=== PATIENT | male | born 1950 | race Caucasian/White ===

== ENCOUNTER 2016-02-17 18:25 | Inpatient (IN) | payer OTHER, MEDICARE ==
[~2016-02-17] VITALS: Ht 182.9 cm; Wt 105.6 kg
[~2016-02-17 18:25] MED LIST: ASPI81 CHEW; ATOR20TA42 PO; CARV12.5 PO; FURO1TAB93 PO; NORC7.5T PO; PERI8.6T PO; RIVA20 PO; SACU1TAB PO; SLOWTAB PO
[2016-02-17 18:27] VITALS: BP 112/72; PULSE 73; RESP 16; TEMP 98.1; O2SAT 99
[2016-02-17 19:52] LABS: AUTOMATED NEUTROPHIL # 4.9 TH/MM3 (1.8-7.7); BASOPHIL % 0.6 % (0.0-2.0); EOSINOPHIL # 0.1 TH/MM3 (0-0.4); HEMATOCRIT 45.1 % (39.0-51.0); HEMO FLAGS DIFF FINAL; LYMPH % 15.6 % (9.0-44.0); LYMPHOCYTE # 1.1 TH/MM3 (1.0-4.8); MEAN CELL VOLUME 96.8 FL (80.0-100.0); MEAN CORPUSCULAR HEMOGLOBIN 32.9 PG (27.0-34.0); MONO % 9.6 % (0.0-8.0); NEUT % 72.2 % (16.0-70.0); PLATELET COUNT 153 TH/MM3 (150-450); RED BLOOD COUNT 4.66 MIL/MM3 (4.50-5.90); RED CELL DISTRIBUTION WIDTH 14.8 % (11.6-17.2); WHITE BLOOD COUNT 6.9 TH/MM3 (4.0-11.0)
[2016-02-17 20:16] LABS: ANION GAP 10 MEQ/L (5-15); BICARBONATE 26.2 MEQ/L (21.0-32.0); BLOOD UREA NITROGEN 35 MG/DL (7-18); CHLORIDE 106 MEQ/L (98-107); GLOMERULAR FILTRATION RATE 32 ML/MIN (>89); POTASSIUM 4.5 MEQ/L (3.5-5.1); SODIUM (NA) 142 MEQ/L (136-145)
[2016-02-17 20:21] LABS: CREATINE KINASE 279 U/L (39-308)
[2016-02-17 20:33] LABS: CKMB 9.8 NG/ML (0.5-3.6)
[2016-02-17 20:50] VITALS: BP 118/81; PULSE 78; RESP 18; O2SAT 100
[2016-02-17] MEDS ORDERED: FUROSEMIDE 40 MG/4 ML VIAL IV PUSH ONE (21:30)
[2016-02-17] MEDS ORDERED: NITROGLYCERIN 2% OINT 1 GM PACKET TOP ONE (21:30)
[2016-02-17] MEDS ORDERED: ASPIRIN 81 MG CHEW TAB PO ONE (21:30)
--- NOTE | 2016-02-17 21:34 | PD ---
HPI Chief Complaint: Cardiac Complaint Time Seen by Provider: 21:27 Travel History International Travel<30 days: No Contact w/Intl Traveler<30days: No Traveled to known affect area: No History of Present Illness HPI Patient is a 65-year-old male with a history of CHF with EF 40-45%, CAD with AICD, atrial fibrillation on Xarelto sent by his hospice consultant Dr. Montes De Oca for CHF exacerbation. Patient states since gi he has gained 20 pounds and feels it is all fluid. He is increasingly dyspneic and reports TRUJILLO, orthopnea and worsening pedal edema. He states that even over the last several weeks he gets tired more easily with the same amount of activity then weeks prior. He denies any chest pain during this time or currently. He is not currently on aspirin. He is taking Lasix 40 mg twice a day and has copious urine output. He states with position changes he gets lightheaded for a few seconds but denies syncope. He denies cough or fever. Denies pain in his lower extremities. PFSH Past Medical History Hx Anticoagulant Therapy: Yes (XARELTO) Atrial Fibrillation: Yes Heart Rhythm Problems: Yes (AICD placed in ut 2009) Cancer: No Cardiac Catheterization: Yes Cardiovascular Problems: Yes (DEFIBRILATOR, STENTS, CHF, A-FIB) High Cholesterol: Yes Congestive Heart Failure: Yes Diabetes: Yes Patient Takes Glucophage: No Diminished Hearing: Yes (BOO HEARING AIDS) Endocrine: No Gastrointestinal Disorders: Yes Genitourinary: No Hypertension: Yes Musculoskeletal: No Neurologic: No Psychiatric: No Respiratory: No Tetanus Vaccination: > 5 Years ?: Not Past Surgical History Cardiac Surgery: Yes (AICD PLACEMENT,STENT PLACEMENT) Cholecystectomy: Yes Coronary Stent: Yes (X 1) Other Surgery: Yes (GALLBLADDER REMOVAL, RETINA REPAIR) Social History Alcohol Use: No (PT DENIES) Tobacco Use: No Substance Use: No Allergies-Medications (Allergen,Severity, Reaction): Coded Allergies: No Known Allergies (Unverified , 08/14/15) Reported Meds & Prescriptions Reported Meds & Active Scripts Active Trinh-Colace 8.6-50 mg (Sennosides-Docusate Sodium) 1 Tab Tab 86 Mg PO BID 10 Days [place] 7.5-325 mg (Hydrocodone-Acetaminophen 7.5-325 mg) 1 Tab 1 Tab PO Q6H PRN Entresto 24-26 mg (Sacubitril-Valsartan) 1 Tab Tab 1 Tab PO BID 30 Days Furosemide 40 Mg Tab 40 Mg PO BIDDIURETIC 30 Days Coreg 12.5 mg (Carvedilol) 12.5 Mg Tab 12.5 Mg PO Q12 30 Days Lipitor (Atorvastatin Calcium) 20 Mg Tab 20 Mg PO HS 30 Days Reported Xarelto 20 Mg Tab (Rivaroxaban) 20 Mg Tab 20 Mg PO HS Slow-Mag (Magnesium Chloride) 64 Mg Tab 64 Mg PO BID Aspirin 81 Mg Tab 162 Mg CHEW DAILY Review of Systems Except as stated in HPI: all other systems reviewed are Neg Physical Exam Narrative GENERAL: Well-developed and well-nourished adult male in no acute distress. SKIN: Warm and dry. Good turgor without tenting. HEAD: Normocephalic and atraumatic. EYES: PERRL bilaterally, 5mm. EOMI bilaterally. No injection or icterus present. No proptosis. Lids without edema or erythema. ENT: Buccal mucosa pink and moist. Oropharynx free of erythema, tonsillar hypertrophy, masses, swelling, asymmetry and exudates. Uvula midline and airway patent. NECK: JVD to the level of the tragus. Supple, no midline tenderness, crepitus or step-offs. Trachea midline. No cervical or facial lymphadenopathy. CARDIOVASCULAR: Regular rate with irregularly irregular rhythm without murmurs, rubs, clicks or gallops. Radial and dorsalis pedis pulses 2+ bilaterally. Bilateral 2+ pitting edema, negative bilateral Homans sign. RESPIRATORY: Faint crackles at the bilateral bases, otherwise clear to auscultation bilaterally with symmetrical rise and fall, no distress or use of accessory muscles. Patient speaks in full sentences and does not appear visibly dyspneic. GASTROINTESTINAL: Non-tender, non-distended. Normal bowel sounds all 4 quadrants. No masses or organomegaly present. MUSCULOSKELETAL: Patient freely moving all four extremities spontaneously. Extremities without clubbing, cyanosis, or edema. No obvious deformities. NEUROLOGIC: CN II-XII grossly intact. Awake and alert. Motor grossly within normal limits. Normal speech. PSYCHIATRIC: Appropriate mood and affect; insight and judgment normal. Data Data Last Documented VS Vital Signs Date Time Temp Pulse Resp B/P Pulse Ox O2 Delivery O2 Flow Rate FiO2 02/17/16 22:10 50 26 109/67 96 Room Air 02/17/16 18:27 98.1 Orders Electrocardiogram (02/17/16 18:39) Complete Blood Count With Diff (02/17/16 18:39) Basic Metabolic Panel (Bmp) (02/17/16 18:39) Ckmb (Isoenzyme) Profile (02/17/16 18:39) Troponin I (02/17/16 18:39) Chest, Single Ap (02/17/16 18:39) CKMB (02/17/16 19:10) CKMB% (02/17/16 19:10) B-Type Natriuretic Peptide (02/17/16 21:24) Aspirin Chew (Aspirin Chew) (02/17/16 21:30) Nitroglycerin 2% Oint (Nitroglycerin 2% (02/17/16 21:30) Furosemide Inj (Lasix Inj) (02/17/16 21:30) Admit Order (Ed Use Only) (02/17/16 22:34) Admit To Inpatient (02/17/16 ) Vital Signs (Adult) Q4H (02/17/16 22:33) Activity Oob With Assistance (02/17/16 22:33) ^ Heel Seat Filler / Telemetry .CONTINUOUS (02/17/16 22:33) Intake + Output DENA.QSHIFT (02/17/16 22:33) Diet Heart Healthy (02/18/16 Breakfast) Sodium Chloride 0.9% Flush (Ns Flush) (02/17/16 22:45) Sodium Chloride 0.9% Flush (Ns Flush) (02/18/16 09:00) Basic Metabolic Panel (Bmp) (02/18/16 06:00) Complete Blood Count With Diff (02/18/16 06:00) Creatine Kinase (Cpk) (02/18/16 01:00) Creatine Kinase (Cpk) (02/18/16 07:00) Troponin I (02/18/16 01:00) Troponin I (02/18/16 07:00) Electrocardiogram (02/18/16 01:00) Electrocardiogram (02/18/16 07:00) Pt Request For Service (02/17/16 22:33) Naloxone Inj (Narcan Inj) (02/17/16 22:45) Inpatient Certification (02/17/16 ) Consult Cardiology (02/17/16 ) Labs Laboratory Tests Test 02/17/16 19:10 White Blood Count 6.9 TH/MM3 Red Blood Count 4.66 MIL/MM3 Hemoglobin 15.3 GM/DL Hematocrit 45.1 % Mean Corpuscular Volume 96.8 FL Mean Corpuscular Hemoglobin 32.9 PG Mean Corpuscular Hemoglobin 34.0 % Concent Red Cell Distribution Width 14.8 % Platelet Count 153 TH/MM3 Mean Platelet Volume 9.9 FL Neutrophils (%) (Auto) 72.2 % Lymphocytes (%) (Auto) 15.6 % Monocytes (%) (Auto) 9.6 % Eosinophils (%) (Auto) 2.0 % Basophils (%) (Auto) 0.6 % Neutrophils # (Auto) 4.9 TH/MM3 Lymphocytes # (Auto) 1.1 TH/MM3 Monocytes # (Auto) 0.7 TH/MM3 Eosinophils # (Auto) 0.1 TH/MM3 Basophils # (Auto) 0.0 TH/MM3 CBC Comment DIFF FINAL Differential Comment Sodium Level 142 MEQ/L Potassium Level 4.5 MEQ/L Chloride Level 106 MEQ/L Carbon Dioxide Level 26.2 MEQ/L Anion Gap 10 MEQ/L Blood Urea Nitrogen 35 MG/DL Creatinine 2.10 MG/DL Estimat Glomerular Filtration 32 ML/MIN Rate Random Glucose 106 MG/DL Calcium Level 8.1 MG/DL Total Creatine Kinase 279 U/L Creatine Kinase MB 9.8 NG/ML Troponin I 0.06 NG/ML MDM Medical Decision Making Medical Screen Exam Complete: Yes Emergency Medical Condition: Yes Interpretation(s) Last 24 hours Impressions Chest X-Ray 02/17/16 7809 Signed Impressions: Service Date/Time: Wednesday, February 17, 2016 22:04 - CONCLUSION: No acute disease. Corky Dale MD Laboratory Tests Test 02/17/16 19:10 White Blood Count 6.9 TH/MM3 (4.0-11.0) Red Blood Count 4.66 MIL/MM3 (4.50-5.90) Hemoglobin 15.3 GM/DL (13.0-17.0) Hematocrit 45.1 % (39.0-51.0) Mean Corpuscular Volume 96.8 FL (80.0-100.0) Mean Corpuscular Hemoglobin 32.9 PG (27.0-34.0) Mean Corpuscular Hemoglobin 34.0 % Concent (32.0-36.0) Red Cell Distribution Width 14.8 % (11.6-17.2) Platelet Count 153 TH/MM3 (150-450) Mean Platelet Volume 9.9 FL (7.0-11.0) Neutrophils (%) (Auto) 72.2 % (16.0-70.0) Lymphocytes (%) (Auto) 15.6 % (9.0-44.0) Monocytes (%) (Auto) 9.6 % (0.0-8.0) Eosinophils (%) (Auto) 2.0 % (0.0-4.0) Basophils (%) (Auto) 0.6 % (0.0-2.0) Neutrophils # (Auto) 4.9 TH/MM3 (1.8-7.7) Lymphocytes # (Auto) 1.1 TH/MM3 (1.0-4.8) Monocytes # (Auto) 0.7 TH/MM3 (0-0.9) Eosinophils # (Auto) 0.1 TH/MM3 (0-0.4) Basophils # (Auto) 0.0 TH/MM3 (0-0.2) CBC Comment DIFF FINAL Differential Comment Sodium Level 142 MEQ/L (136-145) Potassium Level 4.5 MEQ/L (3.5-5.1) Chloride Level 106 MEQ/L (98-107) Carbon Dioxide Level 26.2 MEQ/L (21.0-32.0) Anion Gap 10 MEQ/L (5-15) Blood Urea Nitrogen 35 MG/DL (7-18) Creatinine 2.10 MG/DL (0.60-1.30) Estimat Glomerular Filtration 32 ML/MIN (>89) Rate Random Glucose 106 MG/DL (74-106) Calcium Level 8.1 MG/DL (8.5-10.1) Total Creatine Kinase 279 U/L (39-308) Creatine Kinase MB 9.8 NG/ML (0.5-3.6) Troponin I 0.06 NG/ML (0.02-0.05) Differential Diagnosis CHF exacerbation versus ACS versus pneumonia versus arrhythmia versus hypoglycemia Narrative Course Patient is a 65-year-old male with a history of CAD and CHF presenting with history and physical strong suggestive of acute CHF exacerbation. Further he saw his hospice consultant Dr. Montes De Oca today who sent him here. EKG shows atrophy relation with marked left axis deviation and left bundle branch block which is not new. No ST-T changes when compared to previous EKG. CBC unremarkable. Metabolic panel shows creatinine 2.10 which is elevated from 1.4. BUN 35, troponin 0.06. This does appear to be chronically elevated from 0.05-0.07 and likely is secondary to his chronic kidney disease. BNP was ordered in triage this was added. Chest x-ray pending. Given that the patient has elevated troponin and signs of CHF was given Lasix 40 mg IV, half inch of Nitropaste and aspirin 162 mg. AP chest x-ray read as normal however myself and Dr. Guevara again and it does appear to be some costophrenic blunting bilaterally. Lateral was not ordered as this was from triage. Patient was admitted to Dr. Lui for CHF exacerbation and RENATO. Diagnosis Primary Impression: Acute on chronic heart failure Qualified Code: I50.9 - Acute on chronic heart failure, unspecified heart failure type Additional Impression: Renal failure (ARF), acute on chronic Admitting Information Admitting Physician Requests: Admit Condition: Stable Leon Martinez III Feb 17, 2016 21:34
[2016-02-17 22:10] VITALS: BP 109/67; PULSE 50; RESP 26; O2SAT 96
--- NOTE | 2016-02-17 22:21 | RADRPT ---
EXAM DATE/TIME: 02/17/2016 22:04 [facility] COMPARISON: CHEST SINGLE AP, August 14, 2015, 22:21. INDICATIONS : Chest pain. MEDICAL HISTORY : Hypertension. CHF. Afib. SURGICAL HISTORY : Cardiac catheterization. Coronary stent. AICD. ENCOUNTER: Initial ACUITY: 1 day PAIN SCORE: 7/10 LOCATION: Bilateral chest FINDINGS: A single view of the chest demonstrates the lungs to be symmetrically aerated without evidence of mas s, infiltrate or effusion. The heart size is mildly enlarged. There is no perihilar edema. The left subclavian transvenous pacer remains in place. Osseous structures are intact. CONCLUSION: No acute disease. Corky Dale MD on February 17, 2016 at 22:18 Board Certified Radiologist. This report was verified electronically.
[2016-02-17] MEDS ORDERED: SODIUM CHLORIDE 0.9% FLUSH 5 ML FLUSH FLUSH PRN (22:45)
[2016-02-17] MEDS ORDERED: NALOXONE HCL 0.4 MG/ML AMP IV PRN (22:45)
[2016-02-18] VITALS (9 sets, daily range): BP systolic 108–130; BP diastolic 62–77; PULSE 57–84; RESP 16–28; TEMP 97.5–97.7; O2SAT 94–100
[2016-02-18] MEDS ORDERED: MAGN64 PO (03:10)
[2016-02-18] MEDS ORDERED: XARE20TA PO (03:10)
[2016-02-18] MEDS ORDERED: CARV12.52 PO (03:10)
[2016-02-18] MEDS ORDERED: FURO40TA PO (03:10)
[2016-02-18] MEDS ORDERED: LISI-519 PO (03:10)
[2016-02-18] MEDS ORDERED: ATOR20TA15 PO (03:10)
[2016-02-18 08:02] LABS: AUTOMATED NEUTROPHIL # 4.6 TH/MM3 (1.8-7.7); BASOPHIL % 0.6 % (0.0-2.0); EOSINOPHIL # 0.2 TH/MM3 (0-0.4); EOSINOPHIL % 2.6 % (0.0-4.0); HEMATOCRIT 45.3 % (39.0-51.0); HEMO FLAGS DIFF FINAL; LYMPH % 17.5 % (9.0-44.0); LYMPHOCYTE # 1.2 TH/MM3 (1.0-4.8); MEAN CELL VOLUME 96.4 FL (80.0-100.0); MEAN CORPUSCULAR HEMOGLOBIN 32.1 PG (27.0-34.0); MEAN CORPUSCULAR HGB CONC 33.3 % (32.0-36.0); MONO % 13.1 % (0.0-8.0); NEUT % 66.2 % (16.0-70.0); PLATELET COUNT 162 TH/MM3 (150-450); RED CELL DISTRIBUTION WIDTH 14.9 % (11.6-17.2); WHITE BLOOD COUNT 6.9 TH/MM3 (4.0-11.0)
[2016-02-18 08:24] LABS: BICARBONATE 26.1 MEQ/L (21.0-32.0); POTASSIUM 4.2 MEQ/L (3.5-5.1)
--- NOTE | 2016-02-18 08:33 | HHI.HP ---
[facility] Service [facility] Primary Care Physician Kike Giordano Do, MD Admission Diagnosis CHF exacerbation, RENATO Diagnoses: (1) CHF exacerbation Diagnosis: Principal (2) Ischemic cardiomyopathy (3) CAD (coronary artery disease) (4) Atrial fibrillation (5) Hyperlipidemia (6) Hypertension (7) Renal failure (ARF), acute on chronic (8) Chronic anticoagulation (9) Diabetes mellitus (10) Chronic systolic CHF (congestive heart failure) Chief Complaint: Swelling, CHF Travel History International Travel<30 Days: No Contact w/Intl Traveler <30 Da: No Traveled to Known Affected Are: No History of Present Illness The patient is a 65-year-old male with known history of congestive heart failure who presented to the emergency department at the recommendation of his market research intern yesterday. He states that he has had a 10+ pound weight gain in the past month. He states that he has had increasing shortness of breath and lower extremity swelling. Denies chest pain. Symptoms started following Thanksgiving. He states that he had a lot of family over, but they did not eat all of the food. He states that he finished off all the leftovers despite knowing that he was not following his recommended diet. He saw his market research intern yesterday and was advised to come to the ER. He states that he feels a little better today. Feels that the swelling in his legs has improved somewhat. She reports significant fatigue over the past few weeks as well. Review of Systems Constitutional: COMPLAINS OF: Fatigue, DENIES: Fever, Chills, Night Sweats Eyes: DENIES: Blurred vision, Vision loss Ears, nose, mouth, throat: DENIES: Hearing loss Respiratory: DENIES: Cough, Wheezing, Sputum production, Shortness of breath Cardiovascular: COMPLAINS OF: Lower Extremity Edema, DENIES: Chest pain, Palpitations, Dyspnea on Exertion Gastrointestinal: DENIES: Abdominal pain, Constipation, Diarrhea, Nausea, Vomiting Genitourinary: DENIES: Urinary frequency, Urinary incontinence, Urgency, Hematuria, Dysuria, Nocturia Musculoskeletal: DENIES: Joint pain, Muscle aches Integumentary: DENIES: Pruritus, Rash Hematologic/lymphatic: DENIES: Bruising Neurologic: DENIES: Headache Past Family Social History Past Medical History Chronic systolic congestive heart failure History of ischemic cardiomyopathy CAD Hypertension Hyperlipidemia History of retinal detachment Past Surgical History AICD placement Cardiac catheterization with coronary artery placement Cataract surgery Retinal detachment surgery Bilateral lower extremity vein stripping Reported Medications Trinh-Colace 8.6-50 mg (Sennosides-Docusate Sodium) 1 Tab Tab 86 Mg PO BID 10 Days [place] 7.5-325 mg (Hydrocodone-Acetaminophen 7.5-325 mg) 1 Tab 1 Tab PO Q6H PRN Furosemide 40 Mg Tab 40 Mg PO BIDDIURETIC 30 Days Coreg 12.5 mg (Carvedilol) 12.5 Mg Tab 12.5 Mg PO Q12 30 Days Lipitor (Atorvastatin Calcium) 20 Mg Tab 20 Mg PO HS 30 Days Xarelto 20 Mg Tab (Rivaroxaban) 20 Mg Tab 20 Mg PO HS Slow-Mag (Magnesium Chloride) 64 Mg Tab 64 Mg PO BID Aspirin 81 Mg Tab 162 Mg CHEW DAILY Lisinopril 5 mg daily Allergies: Coded Allergies: No Known Allergies (Unverified , 08/14/15) Family History Stroke, heart disease Social History Denies tobacco use, illicit drug use. Quit drinking alcohol 5 years ago. Physical Exam Vital Signs Vital Signs Date Time Temp Pulse Resp B/P Pulse Ox O2 Delivery O2 Flow Rate FiO2 02/18/16 05:35 59 16 108/72 96 Room Air 02/18/16 01:00 58 28 111/69 Room Air 02/17/16 22:10 50 26 109/67 96 Room Air 02/17/16 20:50 78 18 118/81 100 Room Air 02/17/16 20:48 68 18 100 Room Air 02/17/16 18:27 98.1 73 16 112/72 99 Room Air Physical Exam GENERAL: Well-nourished, well-developed male in no acute distress. HEENT: Normocephalic, atraumatic. Pupils equal, round and reactive. Extraocular movements intact. No scleral icterus. No injection or drainage. Oropharynx is clear. Mucous membranes are moist. CARDIOVASCULAR: Regular rate and rhythm without murmurs, gallops, or rubs. RESPIRATORY: Bibasilar crackles. Breathing is non-labored. GASTROINTESTINAL: Abdomen soft, non-tender, nondistended. EXTREMITIES: 2+ bilateral extremity edema to the knees. No calf tenderness. PSYCH: Alert and oriented x 3. Laboratory Laboratory Tests Test 02/17/16 02/18/16 02/18/16 19:10 02:37 07:17 White Blood Count 6.9 6.9 Red Blood Count 4.66 4.70 Hemoglobin 15.3 15.1 Hematocrit 45.1 45.3 Mean Corpuscular Volume 96.8 96.4 Mean Corpuscular Hemoglobin 32.9 32.1 Mean Corpuscular Hemoglobin 34.0 33.3 Concent Red Cell Distribution Width 14.8 14.9 Platelet Count 153 162 Mean Platelet Volume 9.9 9.8 Neutrophils (%) (Auto) 72.2 66.2 Lymphocytes (%) (Auto) 15.6 17.5 Monocytes (%) (Auto) 9.6 13.1 Eosinophils (%) (Auto) 2.0 2.6 Basophils (%) (Auto) 0.6 0.6 Neutrophils # (Auto) 4.9 4.6 Lymphocytes # (Auto) 1.1 1.2 Monocytes # (Auto) 0.7 0.9 Eosinophils # (Auto) 0.1 0.2 Basophils # (Auto) 0.0 0.0 CBC Comment DIFF FINAL DIFF FINAL Differential Comment Sodium Level 142 Potassium Level 4.5 Chloride Level 106 Carbon Dioxide Level 26.2 Anion Gap 10 Blood Urea Nitrogen 35 Creatinine 2.10 Estimat Glomerular Filtration 32 Rate Random Glucose 106 Calcium Level 8.1 Total Creatine Kinase 279 245 Creatine Kinase MB 9.8 Troponin I 0.06 0.06 B-Type Natriuretic Peptide 660 Result Diagram: 02/18/16 0717 02/17/16 191 Imaging Last Impressions Chest X-Ray 02/17/16 1839 Signed Impressions: Service Date/Time: Wednesday, February 17, 2016 22:04 - CONCLUSION: No acute disease. Corky Dale MD Assessment and Plan Assessment and Plan 1. Acute exacerbation of chronic systolic congestive heart failure: Patient has had weight gain of 10+ pounds in the past few weeks. Feels that he has improved overnight with diuresis. Discussed with cardiology, Dr. Montes De Oca. Continue diuresis, using caution secondary to renal failure. 2 g sodium heart healthy diet. 2. Acute on chronic renal failure: Monitor BUN and creatinine. Consider nephrology consult. 3. Hyperlipidemia: Continue statin. 4. Hypertension: Blood pressure is currently well controlled. 5. Diabetes mellitus: Monitor Accu-Cheks and cover with sliding scale insulin. 6. Mildly elevated troponin: Likely secondary to renal failure, CHF. 7. DVT prophylaxis: ASHLEIGH Lee. Will adjust dose of Xarelto secondary to renal function. Problem Qualifiers (1) CHF exacerbation: Qualified Code: I50.23 - Acute on chronic systolic congestive heart failure Travis Quinonez MD Feb 18, 2016 08:33
--- NOTE | 2016-02-18 08:55 | MB ---
cc: GEORGIE SHAVER MD DATE OF CONSULTATION: 02/18/2016 REASON FOR CONSULTATION CHF. HISTORY OF PRESENT ILLNESS Mr. Mirza is a 65-year-old man who does have a history of an ischemic cardiomyopathy with a most recent EF of 40-45% by echo in July 2015. The patient presented to the office yesterday with complaints of progressive dyspnea and thigh edema over the last month or so. The patient reports that he had been drinking a little extra water. He is now having dyspnea with brisk walking and subsequently presented to the emergency room. PAST MEDICAL HISTORY 1. Systolic heart failure. 2. Hypertension. 3. Hyperlipidemia. 4. Atrial fibrillation. 5. St. Von defibrillator - for EF of 31% in August 2014. 6. CAD with RCA stent after cardiac arrest. PAST SURGICAL HISTORY 1. Cataracts. 2. Cholecystectomy. 3. Retinal surgery. 4. Varicose veins. ALLERGIES No known drug allergies. MEDICATIONS Outpatient medications include: 1. Lisinopril. 2. Xarelto. 3. Carvedilol. 4. Atorvastatin. 5. Lasix. 6. [id number] magnesium. FAMILY HISTORY Noncontributory. SOCIAL HISTORY The patient does not drink or smoke. REVIEW OF SYSTEMS Except as mentioned in the HPI all 12 systems are negative. PHYSICAL EXAMINATION VITAL SIGNS: 59, 16, 108/72. GENERAL: An overweight man in no apparent distress. NECK: Free from JVD. LUNGS: Bilaterally clear to auscultation. CARDIOVASCULAR: Normal S1 and S2. There is a 2/6 systolic murmur. No rubs or gallops are appreciated. ABDOMEN: Soft. EXTREMITIES: The extremities have mild edema. LABORATORY DATA Laboratory values are significant for initial creatinine of 2.1 and serial troponins of 0.06/0.06. BNP is 660. IMPRESSIONS/RECOMMENDATIONS 1. Acute on chronic systolic heart failure: This is secondary to noncompliance. The patient had been none 40 b.i.d. of Lasix as an outpatient and was still having difficulties. We discussed again the importance of compliance for both the fluid and the sodium. This is also being exacerbated by his renal insufficiency which has progressed. At this point the patient is feeling much better. It is reasonable for him to be discharged home on his same regimen if his creatinine is stable to improved. He is on Coreg and lisinopril which will be continued. 2. Atrial fibrillation: The patient is on Xarelto. His GFR is right on the cut point. Thus if his creatinine is stable to improved we will continue him on the 20 of Xarelto, otherwise we should consider decreasing the dose. 3. Coronary artery disease: The patient appears reasonably stable. Trevor Alejandre/CAMERON /8:16 AM /8:39 AM
[2016-02-18] MEDS: SODIUM CHLORIDE 0.9% FLUSH 5 ML FLUSH FLUSH SCH ×2 (08:57→20:33)
[2016-02-18] MEDS ORDERED: RIVAROXABAN 15 MG TAB PO SCH (09:00)
[2016-02-18] MEDS ORDERED: GLUCAGON 1 MG/ML VIAL OTHER PRN (09:30)
[2016-02-18] MEDS ORDERED: DEXTROSE 50% IN WATER 50 ML VIAL(D50) IV PUSH PRN (09:30)
[2016-02-18] MEDS: POTASSIUM CHLORIDE 10 MEQ CONTROLLED RELEASE TAB PO SCH (09:49)
[2016-02-18] MEDS: FUROSEMIDE 40 MG/4 ML VIAL IV PUSH SCH ×2 (09:49→17:20)
[2016-02-18] MEDS: CARVEDILOL 12.5 MG TAB PO SCH ×2 (09:49→20:31)
[2016-02-18] MEDS: MAGNESIUM CHLORIDE 64 MG TAB PO SCH (09:49)
[2016-02-18] MEDS: INSULIN ASPART SUPPLEMENTAL SCALE SQ SCH ×3 (11:00→20:34)
--- NOTE | 2016-02-18 14:47 | EKG ---
Date Performed: 02/17/2016 Time Performed: 19:03:28 PTAGE: 65 years EKG: ATRIAL FIBRILLATION MARKED LEFT AXIS DEVIATION LEFT BUNDLE BRANCH BLOCK PROLONGED CORRECTED QT INTERVAL ABNORMAL ECG PREVIOUS TRACING : 08/15/2015 06.33 DOCTOR: Varinder Parks Interpretating Date/Time 02/18/2016 14:46:16
--- NOTE | 2016-02-18 14:47 | EKG ---
Date Performed: 02/18/2016 Time Performed: 08:25:25 PTAGE: 65 years EKG: ATRIAL FIBRILLATION MARKED LEFT AXIS DEVIATION LEFT BUNDLE BRANCH BLOCK PROLONGED CORRECTED QT INTERVAL ABNORMAL ECG PREVIOUS TRACING : 02/17/2016 19.03 DOCTOR: Varinder Parks Interpretating Date/Time 02/18/2016 14:46:30
[2016-02-18] MEDS ORDERED: ATORVASTATIN 20 MG TAB PO SCH (21:00)
[2016-02-19 04:23] VITALS: BP 118/69; PULSE 69; RESP 20; TEMP 97.4; O2SAT 97
[2016-02-19] MEDS: INSULIN ASPART SUPPLEMENTAL SCALE SQ SCH ×2 (05:37→11:00)
--- NOTE | 2016-02-19 07:48 | PD.CARD.PN ---
Subjective Subjective Remarks Pt without compliants Objective Medications Current Medications Medications (Trade) Dose Ordered Sig/Ladi Route Start Time Stop Time Status Last Admin (NS Flush) 2 ml UNSCH PRN FLUSH 02/17/16 22:45 (NS Flush) 2 ml BID FLUSH 02/18/16 09:00 02/18/16 20:33 (Narcan Inj) 0.4 mg UNSCH PRN IV 02/17/16 22:45 (Lipitor) 20 mg HS PO 02/18/16 21:00 02/18/16 20:31 (Coreg) 12.5 mg BID PO 02/18/16 09:00 02/18/16 20:31 (Slow-Mag Dr) 64 mg DAILY PO 02/18/16 09:00 02/18/16 09:49 (Xarelto) 15 mg DAILY PO 02/18/16 09:00 02/18/16 09:49 (Lasix Inj) 40 mg BID@09,18 IV PUSH 02/18/16 09:00 02/18/16 17:20 (KCl) 10 meq DAILY PO 02/18/16 09:00 02/18/16 09:49 (D50w (Vial) Inj) 25 ml UNSCH PRN IV PUSH 02/18/16 09:30 (Glucagon Inj) 1 mg UNSCH PRN OTHER 02/18/16 09:30 Vital Signs / I&O Vital Signs Date Time Temp Pulse Resp B/P Pulse Ox O2 Delivery O2 Flow Rate FiO2 02/19/16 04:23 97.4 69 20 118/69 97 02/18/16 22:25 97.7 63 20 111/69 95 02/18/16 20:27 97.7 80 22 124/62 94 02/18/16 20:00 74 02/18/16 17:01 59 02/18/16 16:00 97.5 84 24 113/75 100 02/18/16 11:33 70 18 126/77 96 Room Air 02/18/16 08:23 57 22 130/74 95 Room Air I/O 02/18/16 02/18/16 02/18/16 02/19/16 02/19/16 02/19/16 07:00 15:00 23:00 07:00 15:00 23:00 Intake Total 600 ml 120 ml Output Total 600 ml 475 ml 550 ml 775 ml Balance -600 ml -475 ml 50 ml -655 ml Intake Oral 600 ml 120 ml Output Urine Total 600 ml 475 ml 550 ml 775 ml # Voids 1 # Bowel Movements 0 1 Physical Exam GENERAL: Well developed, well nourished. No acute distress. HEENT: Jugular venous pressure is normal. CHEST: Lungs clear to auscultation bilaterally. Unlabored respiratory effort. CARDIAC: Regular rate and rhythm without S3, S4, or murmur. ABDOMEN: Soft, nontender, no hepatosplenomegaly. Bowel sounds present. EXTREMITIES: No clubbing, cyanosis, trace-mild edema. Assessment and Plan Assessment and Plan 1. Acute on chronic systolic heart failure: doing well, change to PO on Coreg and lisinopril which will be continued. ok for d/c today, follow up as OP 2. Atrial fibrillation: change xarelto to 20 a day 3. Coronary artery disease: no change Available Justina Huber MD Feb 19, 2016 07:48
[2016-02-19 07:50] LABS: BICARBONATE 26.5 MEQ/L (21.0-32.0)
[2016-02-19 08:00] VITALS: BP 159/73; PULSE 75; RESP 20; TEMP 97.4; O2SAT 98
--- NOTE | 2016-02-19 08:01 | HHI.PR ---
Subjective Remarks Follow up CHF exacerbation, acute kidney injury. The patient states that he feels much better today. No chest pain or dyspnea. Has been ambulating without difficulty. Has lost about 10 pounds since admission. Objective Vitals Vital Signs Date Time Temp Pulse Resp B/P Pulse Ox O2 Delivery O2 Flow Rate FiO2 02/19/16 04:23 97.4 69 20 118/69 97 02/18/16 22:25 97.7 63 20 111/69 95 02/18/16 20:27 97.7 80 22 124/62 94 02/18/16 20:00 74 02/18/16 17:01 59 02/18/16 16:00 97.5 84 24 113/75 100 02/18/16 11:33 70 18 126/77 96 Room Air 02/18/16 08:23 57 22 130/74 95 Room Air I/O 02/18/16 02/18/16 02/18/16 02/19/16 02/19/16 02/19/16 07:00 15:00 23:00 07:00 15:00 23:00 Intake Total 600 ml 120 ml Output Total 600 ml 475 ml 550 ml 775 ml Balance -600 ml -475 ml 50 ml -655 ml Intake Oral 600 ml 120 ml Output Urine Total 600 ml 475 ml 550 ml 775 ml # Voids 1 # Bowel Movements 0 1 Result Diagram: 02/18/16 0717 02/19/16 0641 Imaging Last Impressions Chest X-Ray 02/17/16 1839 Signed Impressions: Service Date/Time: Wednesday, February 17, 2016 22:04 - CONCLUSION: No acute disease. Corky Dale MD Objective Remarks General: No acute distress. Heart: Regular rate and rhythm. No murmur. Lungs: Clear to auscultation bilaterally. No wheezes, rales, or rhonchi. Breathing is nonlabored. Abdomen: Soft, nontender, nondistended. Extremities: 2+ bilateral lower extremity edema. Psych: Alert and oriented. Procedures None Urinary Catheter: No Vascular Central Line Catheter: No A/P Problem List: (1) CHF exacerbation ICD Code: I50.9 Status: Acute (2) Ischemic cardiomyopathy ICD Code: I25.5 Status: Chronic (3) CAD (coronary artery disease) ICD Code: I25.10 Status: Chronic (4) Atrial fibrillation ICD Code: I48.91 Status: Acute (5) Hyperlipidemia ICD Code: E78.5 Status: Chronic (6) Hypertension ICD Code: I10 Status: Chronic (7) Renal failure (ARF), acute on chronic ICD Code: N17.9 Status: Acute (8) Chronic anticoagulation ICD Code: Z79.01 Status: Chronic (9) Diabetes mellitus ICD Code: E11.9 Status: Acute (10) Chronic systolic CHF (congestive heart failure) ICD Code: I50.22 Status: Acute Assessment and Plan 1. Acute exacerbation of chronic systolic congestive heart failure: Patient has had weight gain of 10+ pounds in the past few weeks. Improving. Change to oral diuretic. Low-sodium diet. 2. Acute on chronic renal failure: Monitor BUN and creatinine. Improving. 3. Hyperlipidemia: Continue statin. 4. Hypertension: Blood pressure is currently well controlled. 5. Diabetes mellitus: Monitor Accu-Cheks and cover with sliding scale insulin. 6. Mildly elevated troponin: Likely secondary to renal failure, CHF. 7. DVT prophylaxis: SCDs, ASHLEIGH roe. Xarelto. Discharge Planning Cleared for discharge by cardiology. Discharge home today in stable condition. Heart healthy, low-sodium diet. Activity as tolerated. Follow-up with PCP and cardiology. Problem Qualifiers (1) CHF exacerbation: Qualified Code: I50.23 - Acute on chronic systolic congestive heart failure Travis Quinonez MD Feb 19, 2016 08:01
[2016-02-19] MEDS ORDERED: POTA-243 PO (08:13)
[2016-02-19] MEDS ORDERED: FURO20TA PO (08:13)
--- NOTE | 2016-02-19 08:13 | HHI.DCPOC ---
Discharge Care Plan Diagnosis: (1) Chronic anticoagulation (2) Ischemic cardiomyopathy (3) Hypertension (4) Hyperlipidemia (5) CAD (coronary artery disease) (6) Atrial fibrillation (7) Chronic systolic CHF (congestive heart failure) (8) CHF exacerbation (9) Diabetes mellitus (10) Renal failure (ARF), acute on chronic Goals to Promote Your Health * To prevent worsening of your condition and complications * To maintain your health at the optimal level Directions to Meet Your Goals Take your medications as prescribed Follow your dietary instruction Follow activity as directed Keep your appointments as scheduled Take your immunizations and boosters as scheduled If your symptoms worsen call your PCP, if no PCP go to Urgent Care Center or Emergency Room Smoking is Dangerous to Your Health. Avoid second hand smoke Call the 24-hour hour crisis hotline for domestic abuse at Travis Quinonez MD Feb 19, 2016 08:13
[2016-02-19] MEDS: CARVEDILOL 12.5 MG TAB PO SCH (08:31)
[2016-02-19] MEDS: MAGNESIUM CHLORIDE 64 MG TAB PO SCH (08:31)
[2016-02-19] MEDS: POTASSIUM CHLORIDE 10 MEQ CONTROLLED RELEASE TAB PO SCH (08:31)
[2016-02-19] MEDS: SODIUM CHLORIDE 0.9% FLUSH 5 ML FLUSH FLUSH SCH (08:31)
[2016-02-19] MEDS ORDERED: RIVAROXABAN 20 MG TAB PO SCH (09:00)
[2016-02-19] MEDS ORDERED: FUROSEMIDE 20 MG TAB PO SCH (09:00)
[2016-02-19 09:10] VITALS: PULSE 80
== END 2016-02-19 12:27 | disposition home or self-care (01) | DRG 292 ==
LOC: NEPC 18:25 → NEDA 22:36 → NEDH 02-18 02:34 → N04A 02-18 14:36
PROVIDERS: ADMIT Family Medicine; ATTEND Family Medicine
DX: I50.23 Acute on chronic systolic (congestive) heart failure (principal); N17.9 Acute kidney failure, unspecified; E11.22 Type 2 diabetes mellitus with diabetic chronic kidney disease; Z86.74 Personal history of sudden cardiac arrest; I13.0 Hypertensive heart and chronic kidney disease with heart failure and stage 1 through stage 4 chronic kidney disease, or unspecified chronic kidney disease; I48.91 Unspecified atrial fibrillation; I25.5 Ischemic cardiomyopathy; E78.5 Hyperlipidemia, unspecified; I25.10 Atherosclerotic heart disease of native coronary artery without angina pectoris; N18.9 Chronic kidney disease, unspecified; Z95.5 Presence of coronary angioplasty implant and graft; Z91.19 Patient's noncompliance with other medical treatment and regimen; Z79.01 Long term (current) use of anticoagulants; Z95.810 Presence of automatic (implantable) cardiac defibrillator
CPT/HCPCS: 71010; 80048; 82550; 82552; 82948; 83880; 84484; 85025; 93005; 96374; J1940

== ENCOUNTER 2016-09-01 08:37 | Inpatient (IN) | payer OTHER, MEDICARE ==
[~2016-09-01] VITALS: Ht 182.9 cm; Wt 105.6 kg
[~2016-09-01 08:37] MED LIST changes: -ASPI81 CHEW; +ATOR20TA15 PO; -ATOR20TA42 PO; -CARV12.5 PO; +CARV12.52 PO; -FURO1TAB93 PO; +FURO20TA PO; +LISI-519 PO; +MAGN64 PO; -NORC7.5T PO; -PERI8.6T PO; +POTA-243 PO; -RIVA20 PO; -SACU1TAB PO; -SLOWTAB PO; +XARE20TA PO
[2016-09-01 08:40] VITALS: BP 131/88; PULSE 78; RESP 18; TEMP 97.9; O2SAT 95
[2016-09-01 09:05] VITALS: BP 134/95; PULSE 63; RESP 18; TEMP 98.2; O2SAT 95
[2016-09-01 09:25] VITALS: O2SAT 100
--- NOTE | 2016-09-01 09:36 | PD ---
HPI Chief Complaint: Medical Clearance Time Seen by Provider: 09:22 Travel History International Travel<30 days: No Contact w/Intl Traveler<30days: No Traveled to known affect area: No History of Present Illness HPI WENT TO HIS DAUGHTER[place] IN [place] AND "ATE LIKE NOBODY'S BUSINESS" AND NOW HAS NOTED A 10 TO 11 POUND INCREASE SINCE THEN...CONTINUES TO TAKE HIS DIURETIC PRESCRIBED, STATES THAT HE ALSO HAS 3RD STAGE RENAL FAILURE WELL. C/O SOB , EDEMA TO BLE, TRUJILLO, AND NOT IMPROVING DESPITE DIURETIC USE. PFSH Past Medical History Hx Anticoagulant Therapy: Yes (XARELTO) Atrial Fibrillation: Yes Heart Rhythm Problems: Yes (AICD placed in [place] 2009) Cancer: No Cardiac Catheterization: Yes Cardiovascular Problems: Yes (CHF,HTN, AFIB) High Cholesterol: Yes Congestive Heart Failure: Yes Coronary Artery Disease: Yes Diabetes: Yes Patient Takes Glucophage: No Diminished Hearing: Yes (BOO HEARING AIDS) Endocrine: No Gastrointestinal Disorders: Yes Genitourinary: No Hypertension: Yes Musculoskeletal: No Neurologic: No Psychiatric: No Respiratory: No Renal Failure: Yes (3RD STAGE KIDNEY FAILURE) Past Surgical History Cardiac Surgery: Yes (AICD PLACEMENT,STENT PLACEMENT) Cholecystectomy: Yes Coronary Stent: Yes (X 1) Other Surgery: Yes (GALLBLADDER REMOVAL, RETINA REPAIR) Social History Alcohol Use: No (PT DENIES) Tobacco Use: No Substance Use: No Allergies-Medications (Allergen,Severity, Reaction): Coded Allergies: No Known Allergies (Unverified , 09/01/16) Reported Meds & Prescriptions Reported Meds & Active Scripts Active Furosemide 20 Mg Tab 20 Mg PO BID@ Klor-Con 10 (Potassium Chloride) 10 Meq Tab 10 Meq PO DAILY Reported Lisinopril 5 Mg Tab 5 Mg PO DAILY Mag64 (Magnesium Chloride) 64 Mg Tab 64 Mg PO DAILY Xarelto (Rivaroxaban) 20 Mg Tab 20 Mg PO DAILY Carvedilol 12.5 Mg Tab 12.5 Mg PO BID Atorvastatin (Atorvastatin Calcium) 20 Mg Tab 20 Mg PO HS Review of Systems Except as stated in HPI: all other systems reviewed are Neg Cardiovascular: Positive: Edema Respiratory: Positive: Shortness of Breath Physical Exam Narrative GENERAL: SKIN: Warm and dry. HEAD: Atraumatic. Normocephalic. EYES: Pupils equal and round. No scleral icterus. No injection or drainage. ENT: No nasal bleeding or discharge. Mucous membranes pink and moist. NECK: Trachea midline. No JVD. CARDIOVASCULAR: Regular rate and rhythm. BILATERAL PITTTING EDEMA 3+, WELL CRACKLES TO BOO LUNG BASES RESPIRATORY: No accessory muscle use. Clear to auscultation. Breath sounds equal bilaterally. GASTROINTESTINAL: Abdomen soft, non-tender, nondistended. Hepatic and splenic margins not palpable. MUSCULOSKELETAL: Extremities without clubbing, cyanosis, or edema. No obvious deformities. NEUROLOGICAL: Awake and alert. No obvious cranial nerve deficits. Motor grossly within normal limits. Five out of 5 muscle strength in the arms and legs. Normal speech. PSYCHIATRIC: Appropriate mood and affect; insight and judgment normal. Data Data Last Documented VS Vital Signs Date Time Temp Pulse Resp B/P Pulse Ox O2 Delivery O2 Flow Rate FiO2 09/01/16 09:25 100 Room Air 09/01/16 09:05 98.2 63 18 134/95 Orders Electrocardiogram (09/01/16 09:22) Complete Blood Count With Diff (09/01/16 09:22) Comprehensive Metabolic Panel (09/01/16:22) Ckmb (Isoenzyme) Profile (09/01/16:22) Troponin I (09/01/16 09:22) B-Type Natriuretic Peptide (09/01/16 09:22) Prothrombin Time / Inr (Pt) (09/01/16:22) Act Partial Throm Time (Ptt) (09/01/16 09:22) Lipase (09/01/16 09:22) Chest, Single Ap (09/01/16:22) Iv Access Insert/Monitor (09/01/16:22) Ecg Monitoring (09/01/16:22) Oximetry (09/01/16 09:22) Bumetanide Inj (Bumex Inj) (09/01/16 09:45) Nitroglycerin 2% Oint (Nitroglycerin 2% (09/01/16 09:45) CKMB (09/01/16 09:20) CKMB% (09/01/16 09:20) Admit Order (Ed Use Only) (09/01/16 11:24) Labs Laboratory Tests Test 09/01/16 09:20 White Blood Count 6.6 TH/MM3 Red Blood Count 4.87 MIL/MM3 Hemoglobin 16.1 GM/DL Hematocrit 47.9 % Mean Corpuscular Volume 98.4 FL Mean Corpuscular Hemoglobin 33.1 PG Mean Corpuscular Hemoglobin 33.6 % Concent Red Cell Distribution Width 15.8 % Platelet Count 154 TH/MM3 Mean Platelet Volume 10.0 FL Neutrophils (%) (Auto) 72.7 % Lymphocytes (%) (Auto) 14.8 % Monocytes (%) (Auto) 10.6 % Eosinophils (%) (Auto) 1.3 % Basophils (%) (Auto) 0.6 % Neutrophils # (Auto) 4.8 TH/MM3 Lymphocytes # (Auto) 1.0 TH/MM3 Monocytes # (Auto) 0.7 TH/MM3 Eosinophils # (Auto) 0.1 TH/MM3 Basophils # (Auto) 0.0 TH/MM3 CBC Comment DIFF FINAL Differential Comment Prothrombin Time 22.5 SEC Prothromb Time International 2.0 RATIO Ratio Activated Partial 42.5 SEC Thromboplast Time Sodium Level 137 MEQ/L Potassium Level 5.4 MEQ/L Chloride Level 105 MEQ/L Carbon Dioxide Level 20.9 MEQ/L Anion Gap 11 MEQ/L Blood Urea Nitrogen 32 MG/DL Creatinine 1.76 MG/DL Estimat Glomerular Filtration 39 ML/MIN Rate Random Glucose 101 MG/DL Calcium Level 8.7 MG/DL Total Bilirubin 2.3 MG/DL Aspartate Amino Transf 45 U/L (AST/SGOT) Alanine Aminotransferase 32 U/L (ALT/SGPT) Alkaline Phosphatase 127 U/L Total Creatine Kinase 254 U/L Creatine Kinase MB 7.2 NG/ML Troponin I 0.06 NG/ML B-Type Natriuretic Peptide 842 PG/ML Total Protein 7.5 GM/DL Albumin 3.6 GM/DL Lipase 112 U/L [facility] Medical Decision Making Medical Screen Exam Complete: Yes Emergency Medical Condition: Yes Medical Record Reviewed: Yes Interpretation(s) AFIB CVR 70'S, NO STEMI PATTERN, LBBB PATTERN NOTED Differential Diagnosis PULM EDEMA V CHF V RENAL FAILURE V ATYPICAL NONSTEMI Narrative Course PATIENT EVALUATION CLINICALLY C/W CHF DUE TO DIETARY INDISCRETION, DURING EVALUATION FOUND TO HAVE AFIB WITH CVR ON XARELTO ANTICOAG, AND RENAL INSUFFICEINCY, WILL ADMIT FOR FURTHER TREATMENT AND CARE Critical Care Narrative CRITICAL CARE NOTE: With evaluation of the patient, labs, EKG, receipt of radiologic studies, administration of medications, reevaluation the patient and discussion of the patient with the admitting physicians, the total critical care time was [60] minutes. Time to perform other separately billable procedures was not included in the critical care time. Diagnosis Primary Impression: Acute decompensated heart failure Additional Impressions: NONSTEMI ACUTE ON CHRONIC RENAL INSUFFICIENCY Admitting Information Admitting Physician Requests: Observation Maverick Sung MD Sep 01, 2016 09:36
[2016-09-01] MEDS ORDERED: BUMETANIDE INJ 1 MG/4 ML VIAL IV PUSH ONE (09:45)
[2016-09-01] MEDS ORDERED: NITROGLYCERIN 2% OINT 1 GM PACKET TOPICAL ONE (09:45)
[2016-09-01 10:07] LABS: AUTOMATED NEUTROPHIL # 4.8 TH/MM3 (1.8-7.7); BASOPHIL % 0.6 % (0.0-2.0); EOSINOPHIL # 0.1 TH/MM3 (0-0.4); EOSINOPHIL % 1.3 % (0.0-4.0); HEMATOCRIT 47.9 % (39.0-51.0); HEMO FLAGS DIFF FINAL; LYMPH % 14.8 % (9.0-44.0); MEAN CELL VOLUME 98.4 FL (80.0-100.0); MEAN CORPUSCULAR HEMOGLOBIN 33.1 PG (27.0-34.0); MEAN CORPUSCULAR HGB CONC 33.6 % (32.0-36.0); MONO % 10.6 % (0.0-8.0); NEUT % 72.7 % (16.0-70.0); PLATELET COUNT 154 TH/MM3 (150-450); RED BLOOD COUNT 4.87 MIL/MM3 (4.50-5.90); RED CELL DISTRIBUTION WIDTH 15.8 % (11.6-17.2); WHITE BLOOD COUNT 6.6 TH/MM3 (4.0-11.0)
[2016-09-01 10:16] LABS: APTT (PATIENT) 42.5 SEC (24.3-30.1); PROTHROMBIN TIME - PATIENT 22.5 SEC (9.8-11.6)
[2016-09-01 10:22] LABS: ALKALINE PHOSPHATASE 127 U/L (45-117); ALT (GPT) 32 U/L (12-78); ANION GAP 11 MEQ/L (5-15); AST (GOT) 45 U/L (15-37); BICARBONATE 20.9 MEQ/L (21.0-32.0); BLOOD UREA NITROGEN 32 MG/DL (7-18); CHLORIDE 105 MEQ/L (98-107); CREATINE KINASE 254 U/L (39-308); GLOMERULAR FILTRATION RATE 39 ML/MIN (>89); SODIUM (NA) 137 MEQ/L (136-145); TOTAL BILIRUBIN ADULT 2.3 MG/DL (0.2-1.0)
--- NOTE | 2016-09-01 10:27 | RADRPT ---
EXAM DATE/TIME: 09/01/2016 09:37 [facility] COMPARISON: CHEST SINGLE AP, February 17, 2016, 22:04. INDICATIONS : Short of breath. MEDICAL HISTORY : Congestive heart failure. Diabetes mellitus type II. SURGICAL HISTORY : defibrillator ENCOUNTER: Initial ACUITY: 1 day PAIN SCORE: 0/10 LOCATION: Bilateral chest FINDINGS: A single view of the chest demonstrates the lungs to be symmetrically aerated without evidence of mas s, infiltrate or effusion. Left subclavian unipolar pacer is radiographically intact. Heart size is p rominent but well compensated. Osseous structures are intact. CONCLUSION: 1. Compensated cardiomegaly. 2. Lungs remain clear. Cheikh Rodas MD on September 01, 2016 at 10:24 Board Certified Radiologist. This report was verified electronically.
[2016-09-01 10:33] LABS: POTASSIUM 5.4 MEQ/L (3.5-5.1)
[2016-09-01 10:45] LABS: CKMB 7.2 NG/ML (0.5-3.6)
[2016-09-01] MEDS ORDERED: SENNOSIDES 8.6 MG TAB PO PRN (11:30)
[2016-09-01] MEDS ORDERED: MAGNESIUM HYDROXIDE SUSP 30 ML CUP PO PRN (11:30)
[2016-09-01] MEDS ORDERED: BISACODYL 10 MG SUPP RECTAL PRN (11:30)
[2016-09-01] MEDS ORDERED: ACETAMINOPHEN 325 MG TAB PO PRN (11:30)
[2016-09-01] MEDS ORDERED: LACTULOSE SYRUP 20 GM/30 ML CUP PO PRN (11:30)
[2016-09-01] MEDS ORDERED: SODIUM CHLORIDE 0.9% FLUSH 10 ML FLUSH IV FLUSH PRN (11:30)
[2016-09-01] MEDS ORDERED: ONDANSETRON HCL 4 MG/2 ML VIAL IVP PRN (11:30)
[2016-09-01] MEDS ORDERED: NALOXONE HCL 0.4 MG/ML AMP IV PRN (11:30)
--- NOTE | 2016-09-01 11:31 | HHI.HP ---
HPI Service [facility] Primary Care Physician Leeann Humphreys MD Admission Diagnosis NONSTEMI, ACUTE DECOMP CHF Diagnoses: Chief Complaint: shortness of breath Travel History International Travel<30 Days: No Contact w/Intl Traveler <30 Da: No Traveled to Known Affected Are: No History of Present Illness 66-year-old male with history of CAD s/p stent, ischemic cardiomyopathy, systolic CHF with Echo 08/01/15 EF 40-45%, AICD, HTN, HLD, Afib on Xarelto, presents with a 1 week history of worsening shortness of breath and weight gain. The patient reports 1.5weeks ago he went to his daughter's wedding in [place] where he went out to dinner 9 out of 11 nights he was there, admits to dietary indiscretion. He reports compliance with his medications including Lasix 20mg bid, however still noticed 10-15lbs weight gain and leg swelling. He also reports orthopnea and dyspnea on exertion. He states even just walking a few steps to the doorway he becomes short of breath, relieved by rest. He denies any chest pain or palpitations. He reports occasional nonproductive cough however exacerbated by exposure to his girlfriend's cigarette smoke. His learning development specialist is Dr. Montes De Oca and he is requesting to see her. He has no other medical complaints at this time. Review of Systems Except as stated in HPI: all other systems reviewed are Neg Past Family Social History Past Medical History CAD with cardiac stent after cardiac arrest Ischemic cardiomyopathy Systolic CHF Hypertension Hyperlipidemia Atrial Fibrillation on Xarelto Past Surgical History Cardiac catheterization with stent St. Von AICD placement Cataract surgery Cholecystectomy Retinal surgery Varicose vein stripping Reported Medications Furosemide 20 Mg Tab 20 Mg PO BID@ Klor-Con 10 (Potassium Chloride) 10 Meq Tab 10 Meq PO DAILY Lisinopril 5 Mg Tab 5 Mg PO DAILY Mag64 (Magnesium Chloride) 64 Mg Tab 64 Mg PO DAILY Xarelto (Rivaroxaban) 20 Mg Tab 20 Mg PO DAILY Carvedilol 12.5 Mg Tab 12.5 Mg PO BID Atorvastatin (Atorvastatin Calcium) 20 Mg Tab 20 Mg PO HS Allergies: Coded Allergies: No Known Allergies (Unverified , 09/01/16) Active Ordered Medications Current Medications Medications (Trade) Dose Ordered Sig/Ladi Route Start Time Stop Time Status Last Admin (Lipitor) 20 mg HS PO 09/01/16 21:00 (Coreg) 12.5 mg BID PO 09/01/16 21:00 (Prinivil) 5 mg DAILY PO 09/02/16 09:00 (Xarelto) 20 mg DAILY PO 09/02/16 09:00 (NS Flush) 2 ml UNSCH PRN IV FLUSH 09/01/16 11:30 (NS Flush) 2 ml BID IV FLUSH 09/01/16 21:00 (Tylenol) 650 mg Q4H PRN PO 09/01/16 11:30 (Zofran Inj) 4 mg Q6H PRN IVP 09/01/16 11:30 (Narcan Inj) 0.4 mg UNSCH PRN IV 09/01/16 11:30 (Trinh-Colace) 1 tab BID PO 09/01/16 21:00 (Milk Of Magnesia Liq) 30 ml Q12H PRN PO 09/01/16 11:30 (Senokot) 17.2 mg Q12H PRN PO 09/01/16 11:30 (Dulcolax Supp) 10 mg DAILY PRN RECTAL 09/01/16 11:30 (Lactulose Liq) 30 ml DAILY PRN PO 09/01/16 11:30 (Lasix Inj) 40 mg Q8H IV PUSH 09/01/16 18:00 09/02/16 06:00 Family History Mother with Alzheimers and gynecological cancer, in her 80s Father with heart disease, in his 80s Social History Denies any tobacco, alcohol, or illicit drug use. Quit alcohol 8years ago Physical Exam Vital Signs Vital Signs Date Time Temp Pulse Resp B/P Pulse Ox O2 Delivery O2 Flow Rate FiO2 09/01/16 09:25 100 Room Air 09/01/16 09:05 98.2 63 18 134/95 95 Room Air 09/01/16 08:40 97.9 78 18 131/88 95 Physical Exam GENERAL: Well-nourished, well-developed middle aged male patient in [facility]. SKIN: Warm and dry. No rash. HEAD: Normocephalic. Atraumatic. EYES: Pupils equal and round. No scleral icterus. No injection or drainage. ENT: No nasal bleeding or discharge. Mucous membranes pink and moist. NECK: Supple. Trachea midline. CARDIOVASCULAR: Regular rate and rhythm. S1, S2 noted. No murmur appreciated. RESPIRATORY: No accessory muscle use. Breath sounds diminished at bilateral bases, otherwise clear to auscultation. Breath sounds equal bilaterally. GASTROINTESTINAL: Abdomen soft, non-tender, nondistended. Normoactive bowel sounds x4. MUSCULOSKELETAL: No obvious deformities. 2+ BLE pitting edema with chronic venous stasis changes. NEUROLOGICAL: Awake and alert. No obvious cranial nerve deficits. Motor grossly within normal limits. Normal speech. PSYCHIATRIC: Appropriate mood and affect; insight and judgment normal. Laboratory Laboratory Tests Test 09/01/16 09:20 White Blood Count 6.6 Red Blood Count 4.87 Hemoglobin 16.1 Hematocrit 47.9 Mean Corpuscular Volume 98.4 Mean Corpuscular Hemoglobin 33.1 Mean Corpuscular Hemoglobin 33.6 Concent Red Cell Distribution Width 15.8 Platelet Count 154 Mean Platelet Volume 10.0 Neutrophils (%) (Auto) 72.7 Lymphocytes (%) (Auto) 14.8 Monocytes (%) (Auto) 10.6 Eosinophils (%) (Auto) 1.3 Basophils (%) (Auto) 0.6 Neutrophils # (Auto) 4.8 Lymphocytes # (Auto) 1.0 Monocytes # (Auto) 0.7 Eosinophils # (Auto) 0.1 Basophils # (Auto) 0.0 CBC Comment DIFF FINAL Differential Comment Prothrombin Time 22.5 Prothromb Time International 2.0 Ratio Activated Partial 42.5 Thromboplast Time Sodium Level 137 Potassium Level 5.4 Chloride Level 105 Carbon Dioxide Level 20.9 Anion Gap 11 Blood Urea Nitrogen 32 Creatinine 1.76 Estimat Glomerular Filtration 39 Rate Random Glucose 101 Calcium Level 8.7 Total Bilirubin 2.3 Aspartate Amino Transf 45 (AST/SGOT) Alanine Aminotransferase 32 (ALT/SGPT) Alkaline Phosphatase 127 Total Creatine Kinase 254 Creatine Kinase MB 7.2 Troponin I 0.06 B-Type Natriuretic Peptide 842 Total Protein 7.5 Albumin 3.6 Lipase 112 Result Diagram: 09/01/1691909/01/16919 Imaging Last Impressions Chest X-Ray 09/01/16921 Signed Impressions: Service Date/Time: Thursday, September 01, 2016 09:37 - CONCLUSION: 1. Compensated cardiomegaly. 2. Lungs remain clear. Cheikh Rodas MD Assessment and Plan Problem List: (1) CHF exacerbation ICD Code: I50.9 Status: Acute (2) Chronic systolic CHF (congestive heart failure) ICD Code: I50.22 Status: Chronic (3) CAD (coronary artery disease) ICD Code: I25.10 Status: Chronic (4) Atrial fibrillation ICD Code: I48.91 Status: Chronic (5) Hypertension ICD Code: I10 Status: Chronic (6) Hyperlipidemia ICD Code: E78.5 Status: Chronic (7) Ischemic cardiomyopathy ICD Code: I25.5 Status: Chronic Assessment and Plan 66-year-old male with history of CAD s/p stent, ischemic cardiomyopathy, systolic CHF with Echo 08/01/15 EF 40-45%, AICD, HTN, HLD, Afib on Xarelto, presents with a 1 week history of worsening shortness of breath and weight gain. Acute Exacerbation of Chronic Systolic Ischemic CHF: +weight gain, BLE edema, TRUJILLO. CXR images reviewed, shows compensated cardiomyopathy otherwise lungs are clear. BNP elevated at 842. Last echo July2015 showed EF 40-45%. -Will continue diuresis with IV Lasix 40mg q8h -Monitor strict Is&Os with fluid restrictions -Monitor on telemetry -repeat Echo ordered -continue patient lisinopril, coreg, statin -not a candidate for Entresto with renal function -Consult patient's learning development specialist Dr. Montes De Oca Elevated Troponin: suspect secondary to CHF exacerbation as above. No reported chest pains. Troponin 0.06, consistent with previous. -Will continue to trend serial cardiac enzymes and EKGs to rule out ACS. -Monitor on telemetry -Nitro prn chest pain Hypertension/Hyperlipidemia: chronic, BP stable -continue patient's lisinopril, coreg, statin -monitor BP, adjust antihypertensives as needed Atrial Fibrillation: chronic -continue patient's Xarelto and BB -monitor on telemetry CKD, stage III: Cr 1.76, appears close to baseline compared to previous admissions. Possible cardiorenal component -monitor BMP while on diuresis All other medical conditions stable, continue home medications as appropriate. DVT Prophylaxis: on Xarelto The exam, history, and the medical decision-making described in the above note were completed with the assistance of the mid-level provider. I reviewed and agree with the findings presented. I attest that I had a [id number] encounter with the patient on the same day, and personally performed and documented my assessment and findings in the medical record. Patient evaluated in Emergency room all questions answered to the best of my abilities. Discussed Condition With Patient, Dr. Edwards Physician Certification 2 Midnight Certification Type: Admission for Inpatient Services Order for Inpatient Services The services are ordered in accordance with Medicare regulations or non- Medicare payer requirements, as applicable. In the case of services not specified as inpatient-only, they are appropriately provided as inpatient services in accordance with the 2-midnight benchmark. Estimated LOS (days): 3 days is the estimated time the patient will need to remain in the hospital, assuming treatment plan goals are met and no additional complications. Post-Hospital Plan: Home Marianne Ward PA-C Sep 01, 2016 11:31 Lul Leung MD Sep 01, 2016 15:20
[2016-09-01] MEDS ORDERED: CARVEDILOL 12.5 MG TAB PO ONE (12:00)
[2016-09-01] MEDS ORDERED: LISINOPRIL 5 MG TAB PO ONE (12:00)
[2016-09-01] MEDS ORDERED: RIVAROXABAN 20 MG TAB PO ONE (12:00)
[2016-09-01] MEDS ORDERED: NITROGLYCERIN 0.4 MG SL 25 TABS/BTL SL PRN (12:15)
[2016-09-01 12:35] VITALS: BP 121/79; PULSE 73; RESP 18; O2SAT 100
[2016-09-01 15:50] VITALS: BP 122/81; PULSE 70; RESP 18; TEMP 97.5; O2SAT 95
[2016-09-01] MEDS: FUROSEMIDE 40 MG/4 ML VIAL IV PUSH SCH (16:33)
--- NOTE | 2016-09-01 19:11 | MB ---
cc: GEORGIE SHAVER MD DATE OF CONSULTATION 09/01/16 REASON FOR CONSULTATION Congestive heart failure HISTORY OF PRESENT ILLNESS Mr. Mirza is a 66-year-old man who does have a history of an ischemic cardiomyopathy with a most recent EF of 38%, ICD, atrial fibrillation. The patient presents with progressive edema. She is status post a recent trip to [place] where he ate excessively, per the patient. He notes, however, though that he did have some start of edema before he left. PAST MEDICAL HISTORY 1. CAD with previous stent after cardiac arrest in [place]. 2. Cardiomyopathy with an EF of 38%. 3. [facility]. Von ICD, 4. Atrial fibrillation with a CHADS vasc score of four, 5. Hypertension, 6. Hyperlipidemia, 7. Syncope 7. V-tach. SOCIAL HISTORY The patient has never smoked. ALLERGIES NO KNOWN DRUG ALLERGIES. MEDICATIONS Outpatient include 1. Lasix 20 mg b.i.d. 2. Klor-Con. 3. Lisinopril, 4. Xarelto 20 mg a day. 5. Carvedilol 12.5 mg b.i.d. 6. Atorvastatin 20 mg q.h.s. FAMILY HISTORY Positive for CAD. REVIEW OF SYSTEMS Except as mentioned in HPI, all 12 systems are negative. PHYSICAL EXAMINATION VITAL SIGNS: 73, 18, 121/79. GENERAL: He is an overweight man who is in no apparent distress. NECK: Free from JVD. LUNGS: Decreased and clear to auscultation. CARDIOVASCULAR: He has a normal S1 and S2. ABDOMEN: Soft. EXTREMITIES: 1+ edema. LABORATORY FINDINGS Significant for a creatinine of 1.76 and a troponin of 0.06 14, with a BNP of 842. Chest x-ray does show no compensated cardiomegaly with clear lungs. IMPRESSION 1. Acute on chronic systolic heart failure - the patient does have an elevated BNP, weeping edema and shortness of breath, all consistent with heart failure. He has had some dietary indiscretion. Thus, at this point I would place him on fluid and sodium restrictions as well as some IV Lasix. 2. Renal insufficiency - the patient's creatinine is a bit high. We will of course watch this. 3. History of cardiomyopathy - as above, he will be continued on his carvedilol. He will remain on a low dose JAI inhibitor. 4. Atrial fibrillation - the patient's Xarelto will have to be adjusted for his thinning renal impairment and may even have to be changed to Eliquis. Trevor Alejandre/ /5:12 PM /6:56 PM
[2016-09-01 20:00] VITALS: BP 118/72; PULSE 61; RESP 20; TEMP 97.5; O2SAT 93
[2016-09-01] MEDS: ATORVASTATIN 20 MG TAB PO SCH (21:05)
[2016-09-01] MEDS: CARVEDILOL 12.5 MG TAB PO SCH (21:05)
[2016-09-01] MEDS: DOCUSATE SODIUM 50 MG/SENNA 8.6 MG TAB PO SCH (21:05)
[2016-09-01] MEDS: SODIUM CHLORIDE 0.9% FLUSH 10 ML FLUSH IV FLUSH SCH (21:08)
[2016-09-02] VITALS (7 sets, daily range): BP systolic 102–137; BP diastolic 66–75; PULSE 54–147; RESP 20; TEMP 97.2–97.6; O2SAT 94–98
[2016-09-02] MEDS: FUROSEMIDE 40 MG/4 ML VIAL IV PUSH SCH (02:19)
[2016-09-02 04:24] LABS: BICARBONATE 27.7 MEQ/L (21.0-32.0); MAGNESIUM 2.5 MG/DL (1.5-2.5); POTASSIUM 4.3 MEQ/L (3.5-5.1)
--- NOTE | 2016-09-02 08:07 | PD.CARD.PN ---
Subjective Subjective Remarks Pt without complaints Objective Medications Current Medications Medications (Trade) Dose Ordered Sig/Ladi Route Start Time Stop Time Status Last Admin (Lipitor) 20 mg HS PO 09/01/16 21:00 09/01/16 21:05 (Coreg) 12.5 mg BID PO 09/01/16 21:00 09/01/16 21:05 (Prinivil) 5 mg DAILY PO 09/02/16 09:00 (NS Flush) 2 ml UNSCH PRN IV FLUSH 09/01/16 11:30 (NS Flush) 2 ml BID IV FLUSH 09/01/16 21:00 09/01/16 21:08 (Tylenol) 650 mg Q4H PRN PO 09/01/16 11:30 (Zofran Inj) 4 mg Q6H PRN IVP 09/01/16 11:30 (Narcan Inj) 0.4 mg UNSCH PRN IV 09/01/16 11:30 (Trinh-Colace) 1 tab BID PO 09/01/16 21:00 09/01/16 21:05 (Milk Of Magnesia Liq) 30 ml Q12H PRN PO 09/01/16 11:30 (Senokot) 17.2 mg Q12H PRN PO 09/01/16 11:30 (Dulcolax Supp) 10 mg DAILY PRN RECTAL 09/01/16 11:30 (Lactulose Liq) 30 ml DAILY PRN PO 09/01/16 11:30 (Nitrostat Sl) 0.4 mg Q5M PRN SL 09/01/16 12:15 (Xarelto) 15 mg DAILY PO 09/02/16 09:00 Vital Signs / I&O Vital Signs Date Time Temp Pulse Resp B/P Pulse Ox O2 Delivery O2 Flow Rate FiO2 09/02/16 04:00 Room Air 09/02/16 04:00 97.4 54 20 116/75 94 09/02/16 00:00 Room Air 09/02/16 00:00 97.3 65 20 102/71 95 09/01/16 20:00 97.5 61 20 118/72 93 09/01/16 15:50 97.5 70 18 122/81 95 09/01/16 12:35 73 18 121/79 100 Room Air 09/01/16 09:25 100 Room Air 09/01/16 09:05 98.2 63 18 134/95 95 Room Air 09/01/16 08:40 97.9 78 18 131/88 95 I/O 09/01/16 09/01/16 09/01/16 09/02/16 09/02/16 09/02/16 07:00 15:00 23:00 07:00 15:00 23:00 Intake Total 720 ml 480 ml Output Total 1000 ml 2100 ml 1475 ml Balance -1000 ml -1380 ml -995 ml Intake Oral 720 ml 480 ml Output Urine Total 1000 ml 2100 ml 1475 ml # Voids 3 3 Physical Exam GENERAL: Well developed, well nourished. No acute distress. HEENT: Jugular venous pressure is normal. CHEST: Lungs clear to auscultation bilaterally. Unlabored respiratory effort. CARDIAC: Regular rate and rhythm without S3, S4, or murmur. ABDOMEN: Soft, nontender, no hepatosplenomegaly. Bowel sounds present. EXTREMITIES: No clubbing, cyanosis, tr edema. Laboratory Laboratory Tests Test 09/01/16 09/01/16 09/01/16 09/01/16 09:20 12:10 12:23 18:11 White Blood Count 6.6 TH/MM3 Red Blood Count 4.87 MIL/MM3 Hemoglobin 16.1 GM/DL Hematocrit 47.9 % Mean Corpuscular Volume 98.4 FL Mean Corpuscular Hemoglobin 33.1 PG Mean Corpuscular Hemoglobin 33.6 % Concent Red Cell Distribution Width 15.8 % Platelet Count 154 TH/MM3 Mean Platelet Volume 10.0 FL Neutrophils (%) (Auto) 72.7 % Lymphocytes (%) (Auto) 14.8 % Monocytes (%) (Auto) 10.6 % Eosinophils (%) (Auto) 1.3 % Basophils (%) (Auto) 0.6 % Neutrophils # (Auto) 4.8 TH/MM3 Lymphocytes # (Auto) 1.0 TH/MM3 Monocytes # (Auto) 0.7 TH/MM3 Eosinophils # (Auto) 0.1 TH/MM3 Basophils # (Auto) 0.0 TH/MM3 CBC Comment DIFF FINAL Differential Comment Prothrombin Time 22.5 SEC Prothromb Time International 2.0 RATIO Ratio Activated Partial 42.5 SEC Thromboplast Time Sodium Level 137 MEQ/L Potassium Level 5.4 MEQ/L 5.2 MEQ/L Chloride Level 105 MEQ/L Carbon Dioxide Level 20.9 MEQ/L Anion Gap 11 MEQ/L Blood Urea Nitrogen 32 MG/DL Creatinine 1.76 MG/DL Estimat Glomerular Filtration 39 ML/MIN Rate Random Glucose 101 MG/DL Calcium Level 8.7 MG/DL Total Bilirubin 2.3 MG/DL Aspartate Amino Transf 45 U/L (AST/SGOT) Alanine Aminotransferase 32 U/L (ALT/SGPT) Alkaline Phosphatase 127 U/L Total Creatine Kinase 254 U/L 257 U/L 220 U/L Creatine Kinase MB 7.2 NG/ML Troponin I 0.06 NG/ML 0.06 NG/ML 0.07 NG/ML B-Type Natriuretic Peptide 842 PG/ML Total Protein 7.5 GM/DL Albumin 3.6 GM/DL Lipase 112 U/L Test 09/02/16 03:29 Sodium Level 140 MEQ/L Potassium Level 4.3 MEQ/L Chloride Level 102 MEQ/L Carbon Dioxide Level 27.7 MEQ/L Anion Gap 10 MEQ/L Blood Urea Nitrogen 35 MG/DL Creatinine 1.59 MG/DL Estimat Glomerular Filtration 44 ML/MIN Rate Random Glucose 110 MG/DL Calcium Level 8.7 MG/DL Magnesium Level 2.5 MG/DL Imaging Last 72 hours Impressions Chest X-Ray 09/01/16 0922 Signed Impressions: Service Date/Time: Thursday, September 01, 2016 09:37 - CONCLUSION: 1. Compensated cardiomegaly. 2. Lungs remain clear. Cheikh Rodas MD Assessment and Plan Assessment and Plan CHF- ECHO pending - doing great after IV lasix=> change to PO Cardiomyopathy- VT- has ICD, no need for interrogation Justina Montes De Oca MD Sep 02, 2016 08:07
[2016-09-02 09:00] LABS: AUTOMATED NEUTROPHIL # 4.4 TH/MM3 (1.8-7.7); BASOPHIL % 0.6 % (0.0-2.0); EOSINOPHIL # 0.1 TH/MM3 (0-0.4); EOSINOPHIL % 1.4 % (0.0-4.0); HEMATOCRIT 47.5 % (39.0-51.0); HEMO FLAGS DIFF FINAL; LYMPH % 14.1 % (9.0-44.0); LYMPHOCYTE # 0.9 TH/MM3 (1.0-4.8); MEAN CELL VOLUME 97.8 FL (80.0-100.0); MEAN CORPUSCULAR HEMOGLOBIN 33.2 PG (27.0-34.0); MEAN CORPUSCULAR HGB CONC 33.9 % (32.0-36.0); MONO % 12.2 % (0.0-8.0); NEUT % 71.7 % (16.0-70.0); PLATELET COUNT 142 TH/MM3 (150-450); RED BLOOD COUNT 4.85 MIL/MM3 (4.50-5.90); RED CELL DISTRIBUTION WIDTH 16.2 % (11.6-17.2); WHITE BLOOD COUNT 6.2 TH/MM3 (4.0-11.0)
[2016-09-02] MEDS ORDERED: RIVAROXABAN 20 MG TAB PO SCH (09:00)
[2016-09-02] MEDS: DOCUSATE SODIUM 50 MG/SENNA 8.6 MG TAB PO SCH ×2 (09:00→21:00)
[2016-09-02] MEDS ORDERED: RIVAROXABAN 15 MG TAB PO SCH (09:00)
[2016-09-02] MEDS: SODIUM CHLORIDE 0.9% FLUSH 10 ML FLUSH IV FLUSH SCH ×2 (09:13→21:27)
[2016-09-02] MEDS: LISINOPRIL 5 MG TAB PO SCH (09:16)
[2016-09-02] MEDS: CARVEDILOL 12.5 MG TAB PO SCH ×2 (09:16→21:27)
[2016-09-02] MEDS: FUROSEMIDE 40 MG TAB PO SCH ×2 (09:23→17:28)
[2016-09-02 09:24] LABS: ANION GAP 10 MEQ/L (5-15); AST (GOT) 29 U/L (15-37); BICARBONATE 24.2 MEQ/L (21.0-32.0); BLOOD UREA NITROGEN 31 MG/DL (7-18); CHLORIDE 104 MEQ/L (98-107); GLOMERULAR FILTRATION RATE 47 ML/MIN (>89); POTASSIUM 3.7 MEQ/L (3.5-5.1); SODIUM (NA) 138 MEQ/L (136-145)
[2016-09-02 09:28] LABS: ALKALINE PHOSPHATASE 128 U/L (45-117); ALT (GPT) 31 U/L (12-78); TOTAL BILIRUBIN ADULT 2.8 MG/DL (0.2-1.0)
--- NOTE | 2016-09-02 10:02 | EKG ---
Date Performed: 09/01/2016 Time Performed: 08:59:12 PTAGE: 66 years EKG: ATRIAL FIBRILLATION MARKED LEFT AXIS DEVIATION LEFT BUNDLE BRANCH BLOCK ABNORMAL ECG Since PREVIOUS TRACING , no significant change noted PREVIOUS TRACIN02/18/2016 08.25 DOCTOR: Kieran Guevara Interpretating Date/Time 09/02/2016 10:01:06
--- NOTE | 2016-09-02 16:17 | HHI.PR ---
Subjective Remarks Follow up for CHF exacerbation. Patient is doing well. Currently on room air. Denies any chest pain, shortness of breath, fever or chills. Leg swelling is much improved. Objective Vitals Vital Signs Date Time Temp Pulse Resp B/P Pulse Ox O2 Delivery O2 Flow Rate FiO2 09/02/16 12:00 97.3 61 20 114/70 96 09/02/16 10:10 147 09/02/16 08:00 97.5 95 20 135/75 96 09/02/16 07:35 Room Air 09/02/16 04:00 Room Air 09/02/16 04:00 97.4 54 20 116/75 94 09/02/16 00:00 Room Air 09/02/16 00:00 97.3 65 20 102/71 95 09/01/16 20:00 97.5 61 20 118/72 93 I/O 09/01/16 09/01/16 09/01/16 09/02/16 09/02/16 09/02/16 07:00 15:00 23:00 07:00 15:00 23:00 Intake Total 720 ml 480 ml Output Total 1000 ml 2100 ml 1475 ml Balance -1000 ml -1380 ml -995 ml Intake Oral 720 ml 480 ml Output Urine Total 1000 ml 2100 ml 1475 ml # Voids 3 3 Result Diagram: 09/02/1671909/02/16719 Imaging Last Impressions Chest X-Ray 09/01/16921 Signed Impressions: Service Date/Time: Thursday, September 01, 2016 09:37 - CONCLUSION: 1. Compensated cardiomegaly. 2. Lungs remain clear. Cheikh Rodas MD Objective Remarks GENERAL: AOX3, NAD. SKIN: Warm and dry. HEAD: Normocephalic. EYES: No scleral icterus. No injection or drainage. NECK: Supple, trachea midline. No JVD or lymphadenopathy. CARDIOVASCULAR: Regular rate and rhythm without murmurs, gallops, or rubs. RESPIRATORY: Breath sounds equal bilaterally. No accessory muscle use. Bibasilar crackles more pronounced on the left side. GASTROINTESTINAL: Abdomen soft, non-tender, nondistended. MUSCULOSKELETAL: No cyanosis. Trace edema bilateral lower ext. BACK: Nontender without obvious deformity. No CVA tenderness. Procedures Echo pending today. A/P Problem List: (1) CHF exacerbation ICD Code: I50.9 Status: Acute (2) Chronic systolic CHF (congestive heart failure) ICD Code: I50.22 Status: Chronic (3) CAD (coronary artery disease) ICD Code: I25.10 Status: Chronic (4) Atrial fibrillation ICD Code: I48.91 Status: Chronic (5) Hypertension ICD Code: I10 Status: Chronic (6) Hyperlipidemia ICD Code: E78.5 Status: Chronic (7) Ischemic cardiomyopathy ICD Code: I25.5 Status: Chronic Assessment and Plan 66-year-old male with history of CAD s/p stent, ischemic cardiomyopathy, systolic CHF with Echo 08/01/15 EF 40-45%, AICD, HTN, HLD, Afib on Xarelto, presents with a 1 week history of worsening shortness of breath and weight gain. Acute Exacerbation of Chronic Systolic Ischemic CHF: +weight gain, BLE edema, TRUJILLO. CXR images reviewed, shows compensated cardiomyopathy otherwise lungs are clear. BNP elevated at 842. Last echo July2015 showed EF 40-45%. -Will continue diuresis with Lasix 40mg BID. -Monitor strict Is&Os with fluid restrictions -Monitor on telemetry -repeat Echo done, report pending. -continue patient lisinopril, coreg, statin -not a candidate for Entresto with renal function -Dr. Montes De Oca following who recommended possible discharge in the AM. Elevated Troponin: suspect secondary to CHF exacerbation as above. No reported chest pains. Troponin 0.06, consistent with previous. -Monitor on telemetry -Nitro prn chest pain Hypertension/Hyperlipidemia: chronic, BP stable -continue patient's lisinopril, coreg, statin -monitor BP, adjust antihypertensives as needed Atrial Fibrillation: chronic - Patient was on Xarelto. His Creatinine is 1.49. Xarelto dosing changed to 15mg Qday. - monitor on telemetry - Continue Carvedilol for rate control. CKD, stage III: Cr 1.76 --> 1.49. -monitor BMP while on diuresis Full code. Xarelto. Discussed with Cardiology. Probable discharge in the AM. Xander Allison DO Sep 02, 2016 4:17 pm
[2016-09-02] MEDS: ATORVASTATIN 20 MG TAB PO SCH (21:28)
--- NOTE | 2016-09-02 21:39 | ECHRPT ---
Indication: Cardiomyopathy, unspecified CONCLUSIONS The left ventricular systolic function is severely reduced with an estimated ejection fraction in th e range of 20-25%. Wall thickness is normal.. Moderately dilated left ventricle. There is estimated mild pulmonary hypertension present (range 40-50 mmHg). Moderate tricuspid regurgitation Moderate mitral valve regurgitation. Trivial pulmonary valve regurgitation. The inferior vena cava is dilated. BP: 121 / 79 HR: 73 Rhythm: MEASUREMENTS (Male / Female) Normal Values Technical Quality: 2D ECHO LV Diastolic Diameter PLAX 6.7 cm 4.2 - 5.9 / 3.9 - 5.3 cm LV Systolic Diameter PLAX 6.0 cm IVS Diastolic Thickness 1.1 cm 0.6 - 1.0 / 0.6 - 0.9 cm LVPW Diastolic Thickness 1.1 cm 0.6 - 1.0 / 0.6 - 0.9 cm LV Relative Wall Thickness 0.3 RV Internal Dim ED PLAX 3.6 cm M-MODE Aortic Root Diameter MM 3.6 cm LA Systolic Diameter MM 6.2 cm LA Ao Ratio MM 1.7 AV Cusp Separation MM 1.9 cm DOPPLER TR Peak Velocity 320.0 cm/s TR Peak Gradient 41.0 mmHg FINDINGS LEFT VENTRICLE The left ventricular systolic function is severely reduced with an estimated ejection fraction in th e range of 20-25%. Wall thickness is normal.. Moderately dilated left ventricle. RIGHT VENTRICLE The right ventriclar size is upper limits of normal. LEFT ATRIUM The left atrial size is moderately dilated. RIGHT ATRIUM The right atrial size is moderately dilated. There is a pacemaker wire present in the right atrial cavity. ATRIAL SEPTUM Normal atrial septal thickness without atrial level shunting by limited color doppler interrogation. AORTA The aortic root and proximal ascending aorta are not well visualized. MITRAL VALVE Moderate mitral valve regurgitation. Structurally normal mitral valve. AORTIC VALVE Trileaflet aortic valve. No aortic valve stenosis or regurgitation. TRICUSPID VALVE There is estimated mild pulmonary hypertension present (range 40-50 mmHg). There is moderate tricuspid regurgitation. Structurally normal tricuspid valve. PULMONARY VALVE Trivial pulmonary valve regurgitation. VESSELS The inferior vena cava is dilated. PERICARDIUM There is no pericardial effusion. Catrachito Milan MD, FACC (Electronically Signed) Final Date:02 September 2016 21:38
[2016-09-03] VITALS: BP 111/59; PULSE 56; RESP 20; TEMP 97.4; O2SAT 98
[2016-09-03 04:00] VITALS: BP 107/65; PULSE 67; RESP 20; TEMP 97.5; O2SAT 96
[2016-09-03 07:26] LABS: BICARBONATE 25.2 MEQ/L (21.0-32.0); POTASSIUM 3.8 MEQ/L (3.5-5.1)
--- NOTE | 2016-09-03 07:33 | PD.CARD.PN ---
Subjective Subjective Remarks Pt without complaints Objective Medications Current Medications Medications (Trade) Dose Ordered Sig/Ladi Route Start Time Stop Time Status Last Admin (Lipitor) 20 mg HS PO 09/01/16 21:00 09/02/16 21:28 (Coreg) 12.5 mg BID PO 09/01/16 21:00 09/02/16 21:27 (Prinivil) 5 mg DAILY PO 09/02/16 09:00 09/02/16 09:16 (NS Flush) 2 ml UNSCH PRN IV FLUSH 09/01/16 11:30 (NS Flush) 2 ml BID IV FLUSH 09/01/16 21:00 09/02/16 21:27 (Tylenol) 650 mg Q4H PRN PO 09/01/16 11:30 (Zofran Inj) 4 mg Q6H PRN IVP 09/01/16 11:30 (Narcan Inj) 0.4 mg UNSCH PRN IV 09/01/16 11:30 (Trinh-Colace) 1 tab BID PO 09/01/16 21:00 09/01/16 21:05 (Milk Of Magnesia Liq) 30 ml Q12H PRN PO 09/01/16 11:30 (Senokot) 17.2 mg Q12H PRN PO 09/01/16 11:30 (Dulcolax Supp) 10 mg DAILY PRN RECTAL 09/01/16 11:30 (Lactulose Liq) 30 ml DAILY PRN PO 09/01/16 11:30 (Nitrostat Sl) 0.4 mg Q5M PRN SL 09/01/16 12:15 (Xarelto) 15 mg DAILY PO 09/02/16 09:00 09/02/16 09:14 (Lasix) 40 mg BID@,18 PO 09/02/16 09:00 09/02/16 17:28 Vital Signs / I&O Vital Signs Date Time Temp Pulse Resp B/P Pulse Ox O2 Delivery O2 Flow Rate FiO2 09/03/16 04:00 97.5 67 20 107/65 96 09/03/16 00:00 97.4 56 20 111/59 98 09/02/16 20:00 68 09/02/16 20:00 97.2 76 20 137/66 98 09/02/16 19:00 Room Air 09/02/16 16:00 97.6 60 20 107/73 97 09/02/16 12:00 97.3 61 20 114/70 96 09/02/16 10:10 147 09/02/16 08:00 97.5 95 20 135/75 96 09/02/16 07:35 Room Air I/O 09/02/16 09/02/16 09/02/16 09/03/16 09/03/16 09/03/16 07:00 15:00 23:00 07:00 15:00 23:00 Intake Total 480 ml 480 ml 480 ml 0 ml Output Total 1475 ml 1000 ml 750 ml 350 ml Balance -995 ml -520 ml -270 ml -350 ml Intake Oral 480 ml 480 ml 480 ml 0 ml Output Urine Total 1475 ml 1000 ml 750 ml 350 ml # Voids 3 # Bowel Movements 1 Physical Exam GENERAL: Well developed, well nourished. No acute distress. HEENT: Jugular venous pressure is normal. CHEST: Lungs clear to auscultation bilaterally. Unlabored respiratory effort. CARDIAC: Regular rate and rhythm without S3, S4, or murmur. ABDOMEN: Soft, nontender, no hepatosplenomegaly. Bowel sounds present. EXTREMITIES: No clubbing, cyanosis, no edema. Laboratory Laboratory Tests Test 09/03/16 05:49 Sodium Level 140 MEQ/L Potassium Level 3.8 MEQ/L Chloride Level 104 MEQ/L Carbon Dioxide Level 25.2 MEQ/L Anion Gap 11 MEQ/L Blood Urea Nitrogen 29 MG/DL Creatinine 1.52 MG/DL Estimat Glomerular Filtration 46 ML/MIN Rate Random Glucose 108 MG/DL Calcium Level 8.6 MG/DL Assessment and Plan Assessment and Plan CHF- ECHO pending - doing good, ok for d/c AF- stable Cardiomyopathy- EF 25% VT- has ICD, on BB Justina Montes De Oca MD Sep 03, 2016 07:33
[2016-09-03 08:00] VITALS: BP 110/76; PULSE 62; PULSE 75; RESP 19; TEMP 97.8; O2SAT 97
[2016-09-03] MEDS: DOCUSATE SODIUM 50 MG/SENNA 8.6 MG TAB PO SCH (08:01)
[2016-09-03] MEDS: CARVEDILOL 12.5 MG TAB PO SCH (08:01)
[2016-09-03] MEDS: FUROSEMIDE 40 MG TAB PO SCH (08:02)
[2016-09-03] MEDS: LISINOPRIL 5 MG TAB PO SCH (08:05)
[2016-09-03] MEDS: SODIUM CHLORIDE 0.9% FLUSH 10 ML FLUSH IV FLUSH SCH (08:05)
[2016-09-03] MEDS ORDERED: RIVAROXABAN 20 MG TAB PO SCH (09:00)
[2016-09-03] MEDS ORDERED: FURO40TA PO (11:06)
--- NOTE | 2016-09-03 11:08 | HHI.DS ---
Discharge Summary Admission Date Sep 01, 2016 at 11:25 am Discharge Date: Sep 03, 2016 Admitting Diagnosis NONSTEMI, ACUTE DECOMP CHF (1) CHF exacerbation ICD Code: I50.9 (2) Chronic systolic CHF (congestive heart failure) ICD Code: I50.22 (3) CAD (coronary artery disease) ICD Code: I25.10 (4) Atrial fibrillation ICD Code: I48.91 (5) Hypertension ICD Code: I10 (6) Hyperlipidemia ICD Code: E78.5 (7) Ischemic cardiomyopathy ICD Code: I25.5 Procedures Echo pending today. Brief History - From Admission 66-year-old male with history of CAD s/p stent, ischemic cardiomyopathy, systolic CHF with Echo 08/01/15 EF 40-45%, AICD, HTN, HLD, Afib on Xarelto, presents with a 1 week history of worsening shortness of breath and weight gain. The patient reports 1.5weeks ago he went to his daughter's wedding in [place] where he went out to dinner 9 out of 11 nights he was there, admits to dietary indiscretion. He reports compliance with his medications including Lasix 20mg bid, however still noticed 10-15lbs weight gain and leg swelling. He also reports orthopnea and dyspnea on exertion. He states even just walking a few steps to the doorway he becomes short of breath, relieved by rest. He denies any chest pain or palpitations. He reports occasional nonproductive cough however exacerbated by exposure to his girlfriend's cigarette smoke. His biblical languages professor is Dr. Montes De Oca and he is requesting to see her. He has no other medical complaints at this time. CBC/BMP: 09/02/16 0720 09/03/16 0549 Significant Findings Laboratory Tests Test 09/01/16 09/01/16 09/01/16 09/01/16 09:20 12:10 12:23 18:11 Neutrophils (%) (Auto) 72.7 % (16.0-70.0) Monocytes (%) (Auto) 10.6 % (0.0-8.0) Prothrombin Time 22.5 SEC (9.8-11.6) Activated Partial 42.5 SEC Thromboplast Time (24.3-30.1) Potassium Level 5.4 MEQ/L 5.2 MEQ/L (3.5-5.1) (3.5-5.1) Carbon Dioxide Level 20.9 MEQ/L (21.0-32.0) Blood Urea Nitrogen 32 MG/DL (7-18) Creatinine 1.76 MG/DL (0.60-1.30) Estimat Glomerular Filtration 39 ML/MIN (>89) Rate Total Bilirubin 2.3 MG/DL (0.2-1.0) Aspartate Amino Transf 45 U/L (15-37) (AST/SGOT) Alkaline Phosphatase 127 U/L (45-117) Creatine Kinase MB 7.2 NG/ML (0.5-3.6) Troponin I 0.06 NG/ML 0.06 NG/ML 0.07 NG/ML (0.02-0.05) (0.02-0.05) (0.02-0.05) B-Type Natriuretic Peptide 842 PG/ML (0-100) Test 09/02/16 09/02/16 09/03/16 03:29 07:20 05:49 Blood Urea Nitrogen 35 MG/DL (7-18) 31 MG/DL (7-18) 29 MG/DL (7-18) Creatinine 1.59 MG/DL 1.49 MG/DL 1.52 MG/DL (0.60-1.30) (0.60-1.30) (0.60-1.30) Estimat Glomerular Filtration 44 ML/MIN (>89) 47 ML/MIN (>89) 46 ML/MIN (>89) Rate Random Glucose 110 MG/DL 112 MG/DL 108 MG/DL (74-106) (74-106) (74-106) Platelet Count 142 TH/MM3 (150-450) Neutrophils (%) (Auto) 71.7 % (16.0-70.0) Monocytes (%) (Auto) 12.2 % (0.0-8.0) Lymphocytes # (Auto) 0.9 TH/MM3 (1.0-4.8) Total Bilirubin 2.8 MG/DL (0.2-1.0) Alkaline Phosphatase 128 U/L (45-117) Imaging Last Impressions Chest X-Ray 09/01/16921 Signed Impressions: Service Date/Time: Thursday, September 01, 2016 09:37 - CONCLUSION: 1. Compensated cardiomegaly. 2. Lungs remain clear. Cheikh Rodas MD PE at Discharge GENERAL: AOX3, NAD. SKIN: Warm and dry. HEAD: Normocephalic. EYES: No scleral icterus. No injection or drainage. NECK: Supple, trachea midline. No JVD or lymphadenopathy. CARDIOVASCULAR: Regular rate and rhythm without murmurs, gallops, or rubs. RESPIRATORY: Breath sounds equal bilaterally. No accessory muscle use. Bibasilar crackles more pronounced on the left side. GASTROINTESTINAL: Abdomen soft, non-tender, nondistended. MUSCULOSKELETAL: No cyanosis. Trace edema bilateral lower ext. BACK: Nontender without obvious deformity. No CVA tenderness. Pt Condition on Discharge: Good Discharge Disposition: Discharge Home Discharge Time: <= 30 minutes Discharge Instructions DIET: Follow Instructions for: Heart Healthy Diet Activities you can perform: Regular-No Restrictions Follow up Referrals: Cardiology - 10 Days with Justina Montes De Oca MD PCP Follow-up - 1 Week New Medications: Furosemide (Furosemide) 40 Mg Tab 40 MG PO BID@ Heart #60 TAB Continued Medications: Atorvastatin (Atorvastatin) 20 Mg Tab 20 MG PO HS Cholesterol Management #30 Ref 0 TAB Carvedilol (Carvedilol) 12.5 Mg Tab 12.5 MG PO BID #60 Ref 0 TAB Lisinopril (Lisinopril) 5 Mg Tab 5 MG PO DAILY Blood Pressure Management #30 Ref 0 TAB Magnesium Chloride (Mag64) 64 Mg Tab 64 MG PO DAILY Ref 0 TAB Potassium Chloride ER (Klor-Con 10) 10 Meq Tab 10 MEQ PO DAILY Supplement #30 Ref 0 TAB Rivaroxaban (Xarelto) 20 Mg Tab 20 MG PO DAILY Blood Clot Prevention Ref 0 TAB Discontinued Medications: Furosemide (Furosemide) 20 Mg Tab 20 MG PO BID@ CHF #60 Ref 0 TAB Xander Allison DO Sep 03, 2016 11:08 am
[2016-09-03 12:00] VITALS: BP 103/61; PULSE 78; RESP 18; TEMP 99; O2SAT 98
== END 2016-09-03 12:50 | disposition home or self-care (01) | DRG 291 ==
LOC: NEPE 08:37 → NEDA 11:25 → N04B 15:48
PROVIDERS: ADMIT Hospitalist; ATTEND Hospitalist
DX: I13.0 Hypertensive heart and chronic kidney disease with heart failure and stage 1 through stage 4 chronic kidney disease, or unspecified chronic kidney disease (principal); I50.23 Acute on chronic systolic (congestive) heart failure; E11.22 Type 2 diabetes mellitus with diabetic chronic kidney disease; Z86.74 Personal history of sudden cardiac arrest; I48.2 Chronic atrial fibrillation; Z79.01 Long term (current) use of anticoagulants; Z95.5 Presence of coronary angioplasty implant and graft; E78.5 Hyperlipidemia, unspecified; H91.90 Unspecified hearing loss, unspecified ear; I25.10 Atherosclerotic heart disease of native coronary artery without angina pectoris; I25.5 Ischemic cardiomyopathy; N18.3 Chronic kidney disease, stage 3 (moderate); Z95.810 Presence of automatic (implantable) cardiac defibrillator; Z77.22 Contact with and (suspected) exposure to environmental tobacco smoke (acute) (chronic)
CPT/HCPCS: 71010; 80048; 80053; 82550; 82552; 82948; 83690; 83735; 83880; 84132; 84484; 85025; 85610; 85730; 93005; 93306; 96374; J1940